=== PATIENT | female | born 1990 | race Two or more races ===

== ENCOUNTER 2025-04-10 04:34 | Emergency (ER) | payer MEDICAID, SELFPAY ==
[2025-04-10 04:40] VITALS: BMI 32.1
[2025-04-10 04:42] VITALS: BP 129/86; PULSE 91; RESP 22; TEMP 36.3; O2SAT 100
[2025-04-10 05:22] LABS: Collection Type, Urine Clean Catch
[2025-04-10 05:23] LABS: Basophils # (Auto) 0.0 Thou/mm3 (0.0-0.2); Basophils % (Auto) 0 % (0-2.5); Eosinophils # (Auto) 0.1 Thou/mm3 (0.0-0.5); Eosinophils % (Auto) 1 % (0-10); Hematocrit 37.6 % (36.0-46.0); Hemoglobin 12.8 g/dL (12.0-16.0); Immature Granulocytes Auto 0.02 Thou/mm3 (0.00-0.00); Lymphocytes # (Auto) 2.6 Thou/mm3 (1.0-4.8); Lymphocytes % (Auto) 23 % (10-50); Mean Corpuscular HGB Conc 34.0 g/dl (31.0-37.0); Mean Corpuscular Hemoglobin 30.0 pg (25.0-35.0); Mean Corpuscular Volume 88 fL (80-100); Monocytes # (Auto) 0.6 Thou/mm3 (0.0-0.8); Monocytes % (Auto) 5 % (0-12); Neutrophils # (Auto) 8.1 Thou/mm3 (1.8-7.7); Neutrophils % (Auto) 70 % (37-80); Nucleated Red Blood Cell # 0.00 Thou/mm3 (0.00-0.00); Nucleated Red Blood Cell % 0 /100 WBC (0); Platelet Count 376 Thou/mm3 (140-440); RDW Standard Deviation 40.8 fL (36.4-46.3); Red Blood Count 4.26 Miln/mm3 (4.00-5.20); White Blood Count 11.5 Thou/mm3 (3.6-11.0)
[2025-04-10 05:28] LABS: Bilirubin,Urine Negative (Negative); Blood,Urine 3+ (Negative); Clarity,Urine Turbid (Clear/Hazy); Color,Urine Brown (Lt Yel-Yel); Culture Indicated,Urine Contaminated; Glucose, Urine Negative (Negative); Ketones,Urine Negative (Negative); Leukocyte Esterase,Urine Positive (Negative); Nitrite,Urine Negative (Negative); PH,Urine 6.0 (5.0-7.0); Protein,Urine 1+ (Neg - Trace); RBC,Urine 4084 /hpf (0-3); Specific Gravity,Urine 1.017 (1.001-1.035); Squamous Epithelial Cell,Urine 15 /hpf (0-5); Urobilinogen,Urine Negative mg/dL (0.0-1.0); WBC,Urine 119 /hpf (0-5)
--- NOTE | 2025-04-10 05:31 | PD.EDVAGBL ---
ED OB Contraction Preg RMI/HPI General Chief complaint: Vaginal Bleeding Stated complaint: tingling legs, vag bleeding, headache dizziness Time Seen by Provider: 04/10/25 05:24 Arrival date/time: 04/10/25 04:34 RME / HPI RME / HPI Narrative: See [facility] for Dr. Gonzalez's HPI Documentation. Related Data Home Medications ?Medication ?Instructions ?Recorded ?Confirmed Vitamin * 1 tab PO QDAY #0 tabs 12/27/16 Previous Rx's ?Medication ?Instructions ?Recorded ibuprofen 400 mg tablet 800 mg (2 x 400 mg) PO Q8HR PRN 12/30/16 PAIN SCALE 4-6 (Moderate #28 tabs norgestimate-ethinyl estradiol 1 tab PO QID #28 tabs 04/10/25 0.18mg/0.215mg/0.25mg-0.035mg(28)tablet (Ortho Tri-Cyclen (28)) Allergies Allergy/AdvReac Type Severity Reaction Status Date / Time NKA* Allergy Uncoded 12/26/16 23:53 Review of Systems Review of Systems Systems Reviewed: All systems reviewed, normal except as documented Past Medical History Social History SMOKING STATUS: Never smoker ED Exam Narrative Physical exam: See [facility] for Dr. Gonzalez's Physical Exam Documentation. Course Quality Measures none Orders Category Date Time Status Saline [Insert IV] NOW Care 04/10/25 05:32 Completed US pelvic complete Stat Exams 04/10/25 05:33 Completed CBC Stat Lab 04/10/25 05:15 Completed CMP [Comprehensive Metabolic Panel] Stat Lab 04/10/25 05:15 Completed HCG,Qualitative Serum Stat Lab 04/10/25 05:15 Completed Magnesium Stat Lab 04/10/25 05:15 Completed PT [Prothrombin Time with INR] Stat Lab 04/10/25 05:15 Completed PTT [Partial Thromboplastin Time] Stat Lab 04/10/25 05:15 Completed UA, C/S IF [Urinalysis, C/S if Indicated] Stat Lab 04/10/25 05:18 Completed Sodium Chloride 0.9% 1000 ml [Ns] 1,000 ml Med 04/10/25 05:32 Discontinued IV 999 mls/hr Vital Signs Vital signs: Vital Signs Temperature 97.3 F 04/10/25 04:42 Pulse Rate 91 04/10/25 04:42 Respiratory Rate 22 H 04/10/25 04:42 Blood Pressure 129/86 H 04/10/25 04:42 Pulse Oximetry (%) 100 04/10/25 04:42 Oxygen Delivery Method Nasal Cannula 04/10/25 04:42 Vaginal Bleeding MDM Narrative MDM Narrative: This section includes all my notes and documentations, including HPI, PE, and ED course. Rohith Gonzalez MD HPI: 34-year-old female here with about 8-day history of vaginal bleeding. No abdominal pain or pelvic pain. No other complaints. ROS: All negative except as documented in HPI. Physical Exam: General: Alert and oriented. No acute distress when remaining still. Eyes: Conjunctivae and lids clear. ENT: No nasal congestion. Neck: Supple. Heart: RRR. Lungs: No respiratory distress. Good air movement. No rhonchi, wheezing, rales. Abdomen: Soft and nontender. Normal bowel sounds. No distension. No rebound or guarding. Back: No CVA tenderness. Skin: Warm and dry. Neuro: Alert and oriented X 3. I reviewed all diagnostic test results: My review of the pelvic US report is no acute findings. Blood tests and urine tests unremarkable, including Hgb 12.8. At this point, diagnoses include: Dysfunctional uterine bleeding. Treatment here included: IVF Recommended more outpatient workup. Based on my best medical judgment, made decision no further evaluation or treatment indicated at this time. Patient understands and agrees to the discharge instructions customized and printed, see below. Discharge Instructions from Dr. Gonzalez printed for you: 1. After evaluation, exact cause of your heavy vaginal bleeding was not determined. 2. But there is no emergency, such as severely low blood count needing transfusion. 3. To help stop the bleeding, take Ortho Tri-Cyclen (one pill) 4X daily for 7 days. 4. Your body needs iron to make red blood cells. So increase food rich in iron. Such as red meat and egg yolks and seaweed. 5. See a private doctor on 04/12/2025 for recheck. Ask to review all test results and official radiology reports, to make sure you receive all necessary follow-ups and monitoring. Ask for help to see derrick boat operator who can help you find the cause/treatment of your bleeding. 6. Seek immediate medical care with severely heavy bleeding, soaking more than 3 pads per hour, or with any concerns. Rohith Gonzalez MD Patient data External records reviewed:: [facility] previous records (No prior ED records available for review) Clinical information provided by:: patient Social determinants that could affect healthcare access:: none Patient has the following chronic illnesses:: None reported How is presenting disease/condition affected by chronic disease/condition?: no chronic disease Evaluation data The following diagnostics were reviewed and interpreted by me:: lab results and radiology exam(s) Lab and/or radiology exams considered but not ordered:: None Interpretation Summary: I reviewed all diagnostic test results: My review of the pelvic US report is no acute findings. Blood tests and urine tests unremarkable, including Hgb 12.8. Medications / Prescriptions Medications or Prescriptions considered but not ordered:: None Medication administrations:: Medication Administration History Discontinued Medications Sodium Chloride (Ns) 1,000 mls @ 999 mls/hr IV .Q1H1M ONE Stop: 04/10/25 06:32 Last Infusion: 04/10/25 07:21 Dose: Infused Documented By: Admin: 04/10/25 06:07 Dose: 999 mls/hr Documented By: AM IVF 1 L Consultations Consultation(s) initiated? (list below): No Diagnosis Vaginal Bleeding Differential Diagnosis: dysfunctional uterine bleeding, ectopic without intrauterine and vaginal bleeding Most likely diagnosis given after review of the tests above:: Dysfunctional uterine bleeding Admission Indicated Admission indicated?: not indicated Explain why admission is indicated or not indicated:: With significant improvement and no condition needing emergent intervention, there was no indication for admission. Admission Request Was there a request for admission?: No Disposition Plan Disposition Plan: Discharge Discharge Attestation Discharge Attestation: The patient and all family members were given an opportunity to ask questions and understood the discharge instructions. Discharge instructions specifically effects, indications for sooner follow up or return to the emergency department, and the expected course of current diagnosis. Patient condition: Stable Discharge Plan Plan Patient Disposition: HOME (Self Care) Prescriptions/Referrals Prescriptions/Med Rec: New norgestimate-ethinyl estradiol [Ortho Tri-Cyclen (28)] 0.18/0.215/0.25 mg-0.035mg (28) tablet 1 tab PO QID Qty: 28 0RF Rx Instructions: This is to stop bleeding and not for control. No Action Vitamin * 1 EACH tablet 1 tab PO QDAY Qty: 0 ibuprofen 400 MG tablet 800 mg PO Q8HR PRN (Reason: PAIN SCALE 4-6 (Moderate) Qty: 28 0RF Problem List Clinical Impression: Dysfunctional uterine bleeding Patient/Caregiver Discharge Instructions Discharge Activity: activity as tolerated Education Materials: ED Dysfunctional Uterine Bleeding, ED Heavy Menstrual Bleeding Additional Instructions: Discharge Instructions from Dr. Gonzalez printed for you: 1. After evaluation, exact cause of your heavy vaginal bleeding was not determined. 2. But there is no emergency, such as severely low blood count needing transfusion. 3. To help stop the bleeding, take Ortho Tri-Cyclen (one pill) 4X daily for 7 days. 4. Your body needs iron to make red blood cells. So increase food rich in iron. Such as red meat and egg yolks and seaweed. 5. See a private doctor on 04/12/2025 for recheck. Ask to review all test results and official radiology reports, to make sure you receive all necessary follow-ups and monitoring. Ask for help to see derrick boat operator who can help you find the cause/treatment of your bleeding. 6. Seek immediate medical care with severely heavy bleeding, soaking more than 3 pads per hour, or with any concerns. Instrucciones de jordin del Dr. Gonzalez impresas para usted: 1. Tras la evaluaci?n, no se determin? la causa exacta de cabrera sangrado vaginal abundante. 2. No se trata de yuri emergencia, aba un recuento sangu?vernon gravemente bajo que requiera transfusi?n. 3. Para ayudar a detener el sangrado, tome Ortho Tri-Cyclen (yuri pastilla) 4 veces al d?a gómez 7 d?as. 4. Cabrera cuerpo necesita ambrocio para producir gl?bulos rojos. Por lo tanto, aumente el consumo de alimentos ricos en ambrocio, aba carne javi, yemas de huevo y algas marinas. 5. Consulte a un m?dico particular el 04/12/2025 para yuri revisi?n. Solicite revisar todos los resultados de las pruebas y los informes radiol?gicos oficiales para asegurarse de recibir todos los seguimientos y controles necesarios. Pida ayuda para consultar a un ginec?logo que pueda ayudarle a encontrar la causa y el tratamiento de cabrera sangrado. 6. Busque atenci?n m?dica inmediata si presenta un sangrado muy abundante, si empapa m?s de 3 compresas por hora o si tiene cualquier otra inquietud. Print Language: [place] Stand Alone Forms: Aide Award Info., Patient Portal Info Letter
--- NOTE | 2025-04-10 05:33 | XR_ITS ---
Examination: Pelvic ultrasound, transabdominal, complete Technique: Transabdominal ultrasound of the pelvis performed using grayscale imaging Date and time of exam: April 10, 2025, 0543 hours INDICATIONS: Pelvic bleeding beginning 8 days ago FINDINGS: Uterus 10.1 cm endometrial stripe 0.6 cm No uterine mass or intrauterine gestation Right ovary 5.8 cm arterial flow, right adnexal complex cyst 21 x 16 x 16 mm with septation and some internal echoes Left ovary obscured by bowel gas IMPRESSION: Right ovarian complex cyst 21 x 16 x 16 mm, differential would include cystadenoma, dermoid cyst Recommend MRI pelvis follow-up pre and postcontrast
[2025-04-10 05:47] LABS: Alanine Aminotransferase 12 U/L (10-49); Albumin, Serum 4.9 gm/dL (3.5-5.0); Albumin/Globulin Ratio 2.1 (1.2-2.2); Alkaline Phosphatase 61 U/L (46-116); Anion Gap 10 (7-16); Aspartate Amino Transferase 15 U/L (0-34); BUN/Creatinine Ratio 25 Ratio (12-20); Bilirubin,Total 0.2 mg/dL (0.3-1.2); Blood Urea Nitrogen 15 mg/dL (9-23); Calcium 9.6 mg/dL (8.3-10.6); Calcium (Corrected) 9.6 mg/dL (8.5-10.1); Carbon Dioxide 23.6 mMol/L (20.0-31.0); Chloride 107 mMol/L (98-107); Creatinine (Component) 0.6 mg/dL (0.6-1.3); Estimated Creatinine Clearance 114.2 mL/min (>60); Globulin 2.3 gm/dL (2.3-3.5); Glucose 114 mg/dL (74-106); Osmolality,Calculated 283 (275-295); Potassium 3.7 mMol/L (3.4-5.1); Sodium 141 mMol/L (136-145); Total Protein 7.2 gm/dL (5.7-8.2); eGFR > 60 See Note
[2025-04-10] MEDS: SODIUM CHLORIDE 0.9% 1000 ML 1,000 ML 999 ML IV (06:07)
[2025-04-10 06:30] LABS: INR 0.9 (0.9-1.3); Partial Thromboplastin Time 27.6 Seconds (22.0-36.0); Prothrombin Time 10.1 Seconds (9.0-12.2)
[2025-04-10 06:36] LABS: HCG,Qualitative Serum Negative
[2025-04-10 07:30] VITALS: BP 114/74; PULSE 61; RESP 18; O2SAT 100
[2025-04-10 07:32] LABS: Magnesium 2.0 mg/dL (1.6-2.6)
--- NOTE | 2025-04-10 08:22 | PRELIM_ITS ---
Pelvic ultrasound (transabdominal). April 10, 2025 at 0543 hours Clinical history: Vaginal bleeding Technique: Real-time, grayscale, transabdominal pelvic ultrasound was performed using duplex scanning including arterial inflow, venous outflow, color and spectral Doppler. No prior study is available for comparison. Findings: The uterus is normal in size, measuring 10.1 x 4.9 x 7.2 cm. The endometrium is unremarkable and measures 0.6 cm. The right ovary measures 5.8 x 5.9 x 4.7 cm. There is a large complex cyst in the right adnexa measuring 21.2 x 16.1 x 16.4 cm. The right ovary demonstrates normal color flow and spectral waveforms on Doppler evaluation. The left ovary is obscured by bowel gas and is not evaluated on this examination. There is no free fluid on the submitted images. Impression: Findings suggestive of a large dermoid cyst in the right adnexa. Recommend clinical correlation and follow-up. Report Electronically Signed By: Zack Valero 04/10/2025 8:21:28 AM [EST]
== END 2025-04-10 07:30 | disposition home or self-care (01) ==
PROVIDERS: Emergency Medicine; Emergency Provider Emergency Medicine; PCP Physician Assistant
DX: N93.8 Other specified abnormal uterine and vaginal bleeding (principal)
CPT/HCPCS: 36415; 76856; 80053; 81001; 83735; 84703; 85025; 85610; 85730; 96360; 99284; J7030